=== PATIENT | female | born 1990 | race Caucasian/White ===

== ENCOUNTER 2017-09-26 11:33 | Emergency (ER) | payer OTHER ==
[2017-09-26 11:37] VITALS: BMI 30.9
[2017-09-26 11:41] VITALS: BP 108/69; PULSE 95; RESP 18; TEMP 99.5; O2SAT 99
--- NOTE | 2017-09-26 12:19 | C.PDOC ---
History Of Present Illness 27 years old female presents to the ED for evaluation of constant pain and swelling to her volar aspect of her right wrist radiates to upper arm onset couple of weeks. Patient reports pain has been hurting sometimes more than other but today it worsened. She states she is unable to move her wrist properly and rates pain as 6 out of 10 scale. She denies any fever, headache, chills, vomiting or diarrhea. PMD: non provided Time Seen by Provider: 09/26/17 11:41 Chief Complaint (Nursing): Finger,Hand,&Wrist History Per: Patient History/Exam Limitations: no limitations Onset/Duration Of Symptoms: Intermittent Episodes, Other (Weeks) Pain Scale Rating Of: 6 Past Medical History Reviewed: Historical Data, Nursing Documentation, Vital Signs Vital Signs: Last Vital Signs Temp 99.5 F 09/26/17 11:37 Pulse 95 H 09/26/17 11:37 Resp 18 09/26/17 11:37 BP 108/69 09/26/17 11:37 Pulse Ox 99 09/26/17 12:42 - Medical History PMH: Asthma, Pancreatitis Surgical History: Cholecystectomy Family History: States: Unknown Family Hx - Social History Hx Tobacco Use: Yes (Cigarettes) Hx Alcohol Use: No Hx Substance Use: No - Immunization History Hx Tetanus Toxoid Vaccination: No Hx Influenza Vaccination: No Hx Pneumococcal Vaccination: No Review Of Systems Except As Marked, All Systems Reviewed And Found Negative. Constitutional: Negative for: Fever, Chills Gastrointestinal: Negative for: Nausea, Vomiting Neurological: Negative for: Headache Physical Exam - Physical Exam Appears: Non-toxic, No Acute Distress Extremity: Tenderness (to touch of right wrist), Other (Significant moderate size ganglionic of right wrist ) Neurological/Psych: Oriented x3 ED Course And Treatment O2 Sat by Pulse Oximetry: 99 (RA) Pulse Ox Interpretation: Normal Medical Decision Making Medical Decision Making: Time: 1145 Initial plan: --Motrin 600 mg PO Disposition - Disposition Referrals: José Miguel Buckley MD [Staff Provider] - Disposition: HOME/ ROUTINE Disposition Time: 12:17 Condition: STABLE Prescriptions: Ibuprofen [Motrin] 600 mg PO TID #15 tab Instructions: Ganglion Cyst (DC) Forms: [employer] (Greenlandic) - Clinical Impression Clinical Impression: Ganglion cyst of dorsum of right wrist - Scribe Statement The provider has reviewed the documentation as recorded by the Scribe (Deyanira Redding)
== END 2017-09-26 12:54 | disposition home or self-care (01) ==
LOC: C.ER 11:33
DX: M67.431 Ganglion, right wrist (principal)